=== PATIENT | female | born 1950 | race Caucasian/White ===

== ENCOUNTER → 2023-12-03 12:21 | Outpatient (REF) | payer OTHER, SELFPAY | LOC: HWWDC 12:21 | PROVIDERS: ATTENDING PHYSICIAN Nurse Practitioner Family; FAMILY PHYSICIAN Internal Medicine | DX: Z12.31 Encounter for screening mammogram for malignant neoplasm of breast (principal) | CPT/HCPCS: 77063; 77067 ==

== ENCOUNTER → 2024-04-07 11:22 | Outpatient (REF) | payer OTHER, SELFPAY | LOC: DHCBC/DCA 11:22 | PROVIDERS: ATTENDING PHYSICIAN Internal Medicine Cardiovascular Disease; FAMILY PHYSICIAN Internal Medicine | DX: R00.2 Palpitations (principal); I10 Essential (primary) hypertension; Z82.49 Family history of ischemic heart disease and other diseases of the circulatory system; R06.02 Shortness of breath | CPT/HCPCS: 78452; 93017; A9500 ==

== ENCOUNTER → 2024-04-22 06:27 | Day surgery (SDC) | payer OTHER, SELFPAY | LOC: GI 06:27 | PROVIDERS: ATTENDING PHYSICIAN Internal Medicine Gastroenterology | DX: K21.00 Gastro-esophageal reflux disease with esophagitis, without bleeding (principal); K44.9 Diaphragmatic hernia without obstruction or gangrene; K29.50 Unspecified chronic gastritis without bleeding | CPT/HCPCS: 43239; 88305; 88342 ==

== ENCOUNTER → 2024-04-30 11:51 | Outpatient (REF) | payer OTHER, SELFPAY | LOC: RAD 11:51 | PROVIDERS: ATTENDING PHYSICIAN Internal Medicine Cardiovascular Disease; FAMILY PHYSICIAN Internal Medicine | DX: I10 Essential (primary) hypertension (principal); R07.9 Chest pain, unspecified | CPT/HCPCS: 75574; Q9967 ==

== ENCOUNTER 2024-07-22 06:25 | Day surgery (SDC) | payer OTHER, SELFPAY ==
[2024-07-02 13:03] VITALS: BMI 27.0
[2024-07-02 14:22] LABS: Hematocrit 36.2 % (37.0-47.0); Hemoglobin 12.3 g/dL (12.0-16.0); Mean Corpuscular Hgb 29.8 pg (27.0-31.0); Mean Corpuscular Volume 87.7 fL (81.0-99.0); Mean Platelet Volume 9.6 fL (7.4-10.4); Platelet Count 433 10^3/uL (130-400); Red Blood Cell Count 4.13 10^6/uL (4.20-5.40); Red Cell Dist. Width 13.1 % (11.5-14.5); White Blood Cell Count 7.2 10^3/uL (4.8-10.8)
[2024-07-22] VITALS (9 sets, daily range): BP systolic 123–157; BP diastolic 67–79; BMI 27.0
[2024-07-22] MEDS: MOBIC 15 MG PO (11:51)
[2024-07-22] MEDS: TYLENOL 1000 MG PO (11:51)
== END 2024-07-22 19:32 | disposition home or self-care (01) ==
LOC: SDS 06:25
PROVIDERS: ATTENDING PHYSICIAN Specialist; FAMILY PHYSICIAN Internal Medicine; OTHER PHYSICIAN Internal Medicine Cardiovascular Disease
PROC: 0SBD4ZZ Excision of Left Knee Joint, Percutaneous Endoscopic Approach (ICD-10-PCS; 2024-07-22)
DX: S83.242A Other tear of medial meniscus, current injury, left knee, initial encounter (principal); X58.XXXA Exposure to other specified factors, initial encounter; M94.262 Chondromalacia, left knee
CPT/HCPCS: 29881; 36415; 85027; 93005

== ENCOUNTER → 2024-08-12 16:07 | Outpatient (REF) | payer OTHER, SELFPAY ==
[2024-04-11 13:23] LABS: Hematocrit 36.3 % (37.0-47.0); Hemoglobin 12.8 g/dL (12.0-16.0); Mean Corp Hgb Conc. 35.3 g/dL (33.0-37.0); Mean Corpuscular Hgb 30.6 pg (27.0-31.0); Mean Corpuscular Volume 86.8 fL (81.0-99.0); Mean Platelet Volume 9.6 fL (7.4-10.4); Platelet Count 400 10^3/uL (130-400); Red Blood Cell Count 4.18 10^6/uL (4.20-5.40); Red Cell Dist. Width 12.5 % (11.5-14.5)
[2024-04-11 13:38] VITALS: BMI 26.1
== END ==
LOC: REG 16:07
PROVIDERS: ATTENDING PHYSICIAN Specialist; FAMILY PHYSICIAN Internal Medicine; OTHER PHYSICIAN Internal Medicine Cardiovascular Disease
DX: S83.242D Other tear of medial meniscus, current injury, left knee, subsequent encounter (principal)
CPT/HCPCS: 36415; 85027

== ENCOUNTER 2024-09-07 21:20 | Inpatient (IN) | payer OTHER, SELFPAY ==
[2024-09-07] VITALS (13 sets, daily range): BP systolic 106–179; BP diastolic 66–151; BMI 26.4
--- NOTE | 2024-09-07 19:05 | ED.GENMED ---
History of Present Illness
General
Chief Complaint: Cardiac Symptoms
Source: patient
Exam Limitations: none
Time Seen by Provider: 09/07/24 18:51
History of Present Illness
History of Present Illness:
74-year-old female with history of hypothyroidism hyperlipidemia presents with rapid heart rate chest pressure. Unclear onset. She has been feeling off for period of time. She has follow-up with cardiology. She was due for heart catheterization
in the morning. No prior diagnosis of arrhythmias. No leg swelling or calf pain. No recent travel or surgery.
Phy Exam
Physical Exam
Physical Exam:
General: Well-appearing female no acute respiratory distress
HEENT: Normocephalic atraumatic
Heart: Tachycardic and irregular
Lungs: Clear no wheeze
Extremities: No cyanosis
Skin: Warm no rash
Course
Orders/Labs/Results
Orders:
Orders
09/07/24 18:36
EKG [Electrocardiogram (*1)] Stat
Reason for Study: Chest Pain
EKG- Treatment ONCE
09/07/24 19:00
Diltiazem 125 mg/125 ml Nss [Cardizem] 125 mg in 125 ml IV PER PROTOCOL
Initial dose in mg/hr, then titrate:: 5
Titrate to keep:: Heart rate 80-100 bpm
Titrate by mg/hr:: 5 mg/hr
Frequency of titrations (minutes):: 15
Maximum dose in mg/hr:: 15
Diltiazem HCl [Cardizem] 10 mg IV NOW STA
09/07/24 19:08
Complete Blood Count/With Diff Urgent
Comprehensive Metabolic Panel Urgent
TSH Reflex To Free T4 Urgent
Troponin I Urgent
09/07/24 19:56
0.9% Sodium Chloride 1000 ml [Nss] 1,000 ml IV BOLUS
Diltiazem HCl [Cardizem] 10 mg IV NOW STA
09/07/24 20:05
Heparin 4,000 units IV NOW STA
Pharmacy Request to Place See Dose Instructions PO NOW STA
Discontinue all Active Warfarin orders?: Yes
09/07/24 20:06
PTT Urgent
Comment: Obtain baseline before beginning heparin infusion if not already collected
Nursing to Place Non Medication Order As Directed
Physician Order: PTT 6 hours after initial start of Heparin infusion
09/07/24 20:15
Heparin 61113 Units/250 ml 25,000 units in 250 ml IV PER PROTOCOL
Weight to be used for heparin protocol in kilograms (kg):: 72
Protocol:: Cardiac Tx/Acute Coronary
PTT Goal Range to be used:: PTT 73 to 111 seconds
Order type:: Initial
INITIAL Infusion Dose (UNITS/KG/hr) & then follow protocol:: 12 units/kg/hr
Infusion Dose in UNITS/hr & then follow protocol (UNITS/hr):: 850
INFUSION RATE in mL/hr & then follow protocol (mL/hr):: 8.5
PTT less than or equal to 64 seconds:: Increase rate by 200 units/hr (+ 2 mL/hr)
PTT 64.1 to 72.9 seconds:: Increase rate by 100 units/hr (+ 1 mL/hr)
PTT 73 to 111 seconds:: Target Range. No change in rate.
PTT 111.1 to 130.9 seconds:: Decrease rate by 100 units/hr (- 1 mL/hr)
PTT 131 to 199.9 seconds:: HOLD for 1 hr. Then decrease rate by 200 units/hr (- 2 mL/hr)
PTT greater than or equal to 200 seconds:: HOLD for 2 hrs & Notify Provider. Then decrease by 200 units/hr (-
2 mL/hr)
Lab follow-up:: Each change, PTT q6h until 2 consecutive are therapeutic. Then PTT
daily.
09/07/24 21:[address] See Dose Instructions IV DIRECTED
Abnormal Lab Results
09/07/24
19:08
Plt Count 418 H 10^3/uL
(130-400)
Absolute Neuts (auto) 8.1 H 10^3/uL
(1.4-6.5)
Absolute Monos (auto) 1.0 H 10^3/uL
(0.1-0.6)
Neutrophils % 77.6 H %
(42.2-75.2)
Lymphocytes % 11.8 L %
(20.5-51.1)
Monocytes % 9.6 H %
(1.7-9.3)
Carbon Dioxide 20 L mmol/L
(22-30)
Glucose 135 H mg/dl
(70-99)
09/07/24 19:08
09/07/24 19:08
Vital Signs
Initial and Last Documented VS:
Initial Vital Signs
Temp Pulse Resp BP Pulse Ox
98 F 168 20 131/85 95
09/07/24 18:44 09/07/24 18:44 09/07/24 18:44 09/07/24 18:44 09/07/24 18:44
Last Documented Vital Signs
Temp Pulse Resp BP Pulse Ox
98 F 144 20 106/76 97
09/07/24 18:44 09/07/24 20:04 09/07/24 19:45 09/07/24 20:04 09/07/24 19:45
MDM/Problems Addressed
Differential Diagnosis Includes:
Patient with palpitations chest discomfort shortness of breath. Consider arrhythmia versus ACS versus electrolyte abnormality will check thyroid as well.
EKG shows rapid A-fib with a heart rate in the 170s. Labs pending will attempt rate control with Cardizem. Exact onset of A-fib unknown. Not a clear cardioversion candidate.
*Critical Care Note
Total Time (30-74mins, 75-104mins- exclusive of procedures): Not Applicable
Update Note
Update Note:
Patient persisted to be in rapid A-fib. She was given 2 boluses of 10 mg of Cardizem and is currently on 15 mg on the drip. Patient blood pressure is stable. She feel better heart rate still in the 120s to 130s. Discussed with cardiology who
recommended initiation of heparin drip. Also admitted to hospitalist for further treatment.
ED Attending Note
-
Portions of this chart may have been created with voice recognition software.� Occasional wrong word or��sound alike� substitutions may have occurred due to the inherent limitations of voice recognition software.
Discharge Plan
Departure
Patient Disposition: Admit
Date of Disposition: 09/07/24
Time of Disposition: 20:17
Admit to: Telemetry
Presentation/result/management discussed w/ accepting MD/DO: Hospitalist
Discharge Problem:
Atrial fibrillation, rapid
Prescriptions:
No Action
multivitamin Tablet
1 tab PO DAILY
ascorbic acid (vitamin C) [Vitamin C] 1,000 mg Tablet
1 g PO DAILY
valsartan 80 mg Tablet
80 mg PO HS
temazepam 15 mg Capsule
15 mg PO HS PRN (Reason: insomnia)
rizatriptan 10 mg Tablet,Disintegrating
10 mg PO PRN PRN (Reason: migraines)
levothyroxine 125 mcg Tablet
125 mcg PO DAILY
zinc 50 mg Tablet
50 mg PO DAILY
magnesium 250 mg Tablet
250 mg PO DAILY
cholecalciferol (vitamin D3) [Vitamin D3] 25 mcg (1,000 unit) Tablet
25 mcg PO DAILY
Prolia 60 mg/mL Syringe
60 mg SC [id number]
atorvastatin 20 mg Tablet
20 mg PO HS
Neuriva Original 100-100 mg Capsule
1 cap PO DAILY
aspirin 81 mg Capsule
81 mg PO DAILY
Voquezna 20 mg Tablet
20 mg PO DAILY
biotin
1 tab PO DAILY
turmeric
1 tab PO DAILY
Interventions
Interventions:
*Risk Screen - Suicide Last Done: 09/07/24 18:35
*General Assessment Last Done: 09/07/24 19:17
*Neglect/Abuse Screening Last Done: 09/07/24 18:35
ED- Fall Risk Assessment Last Done: 09/07/24 18:35
*ED COVID-19 Vaccine History Last Done: 09/07/24 19:17
ED- Pulmonary Assessment Last Done: 09/07/24 19:17
ED- Cardiac Assessment Last Done: 09/07/24 19:17
Discharge Date and Time
Print Language: CITIZEN [place]
[2024-09-07] MEDS: CARDIZEM 10 MG IV ×2 (19:08→20:04)
[2024-09-07] MEDS: CARDIZEM 125 IV (19:10)
[2024-09-07 19:33] LABS: % Basophils 0.2 % (0-2); % Eosinophils 0.4 % (0-6); % Immature Granulocytes 0.4 % (0-0.5); % Lymphocytes 11.8 % (20.5-51.1); % Monocytes 9.6 % (1.7-9.3); % Neutrophils 77.6 % (42.2-75.2); Absolute Lymphocytes 1.2 10^3/uL (1.2-3.4); Absolute Neutrophils 8.1 10^3/uL (1.4-6.5); Hematocrit 38.7 % (37.0-47.0); Hemoglobin 12.9 g/dL (12.0-16.0); Mean Corp Hgb Conc. 33.3 g/dL (33.0-37.0); Mean Corpuscular Hgb 29.5 pg (27.0-31.0); Mean Corpuscular Volume 88.6 fL (81.0-99.0); Mean Platelet Volume 9.6 fL (7.4-10.4); Nucleated Red Blood Cells % 0 %; Platelet Count 418 10^3/uL (130-400); Red Blood Cell Count 4.37 10^6/uL (4.20-5.40); Red Cell Dist. Width 12.7 % (11.5-14.5); White Blood Cell Count 10.4 10^3/uL (4.8-10.8)
[2024-09-07 19:51] LABS: ALT (SGPT) 26 U/L (0-35); AST (SGOT) 22 U/L (14-36); Albumin 4.5 g/dl (3.5-5.0); Alkaline Phosphatase 64 U/L (38-126); Blood Urea Nitrogen 13 mg/dl (7-17); Calcium 9.6 mg/dl (8.4-10.2); Carbon Dioxide 20 mmol/L (22-30); Chloride 106 mmol/L (98-107); Estimated Creatinine Clearance 62 ml/min; Glucose 135 mg/dl (70-99); Potassium 3.9 mmol/L (3.5-5.1); Sodium 138 mmol/L (135-145); Total Bilirubin 0.7 mg/dl (0.2-1.3); Total Protein 7.1 g/dl (6.3-8.2); eGFR > 60.00
[2024-09-07 19:53] LABS: Troponin I 0.028 ng/ml
[2024-09-07] MEDS: NSS 1000 IV (20:03)
[2024-09-07 20:20] LABS: TSH Reflex To Free T4 0.07 uIU/ml (0.47-4.68)
[2024-09-07 20:39] LABS: APTT 30.2 Sec (23.4-35.0)
[2024-09-07 20:50] LABS: Free T4 1.57 ng/dl (0.78-2.19)
--- NOTE | 2024-09-07 21:08 | HPS.HSE ---
Family Physician
-
Family Physician: Stella Oglesby
Chief Complaint
-
Palpitations / Chest Pain
History of Present Illness
Patient is a 74y F with PMH significant for hypothyroidism, migraine headaches and GERD who presents to ED complaining of palpitations and chest discomfort. Patient states that she developed intermittent discomfort in the L jaw about 2 weeks
ago. She had been seen by her Automation Consultant on Sunday and was started on new metoprolol and Imdur. She was scheduled for catheterization (tomorrow AM). Patient notes that the Imdur caused a severe headache and she slept poorly last PM due to
discomfort. Upon waking this AM, patient noted pounding / racing sensation in the chest with chest tightness / heaviness. No radiation of the pain today to the jaw, arm, back, etc.
Patient reports associated nausea / retching, SOB, lightheadedness and diaphoresis. She checked her pulse at home with a CardioNet monitor and this stated that she was in A-Fib with heart rate of 189.
Patient presented to the ED for further evaluation where EKG / tele confirms A-Fib with RVR.
At the time of my examination, patient is resting comfortably in the ED.
She denies any recent symptoms of illness including sore throat, cough, fever / chills, etc.
Patient does not have a prior / formal diagnosis of A-Fib - though she has experienced intermittent palpitations x years.
Her T4 dose was recently decreased from 125mcg daily to 125mcg six days per week due to depressed TSH.
No other recent med changes / additions (besides previously mentioned metoprolol / Imdur).
Medical History
Past Medical History
Past Medical History: Reports Other
Additional Past Medical History:
Hypothyroidism
Osteoporosis
GERD
Migraine Headaches
Insomnia
Past Surgical History: Reports Other
Additional Past Surgical History:
Bilateral Knee Arthroscopies
Cataracts
Social History
Tobacco: Non-smoker
Alcohol: Occasional
Drug: None
Personal:
Living: With Family
Family History
Family History: Other (Family history of premature CAD.)
Allergies / Home Medications
Allergies reflects when Allergies were last updated in [facility].
Home Medications with original date entered in [facility]
Allergy/Medication List:
Allergies
Allergy/AdvReac Type Severity Reaction Status Date / Time
bee venom protein (honey bee) Allergy major Verified 09/07/24 18:37
swelling
Sulfa (Sulfonamide Allergy GASTROINTESTINAL Verified 09/07/24 18:37
Antibiotics) PROBLEMS
Home Medications
ascorbic acid (vitamin C) 1,000 mg tablet (Vitamin C) 1 g PO DAILY 04/28/24
cholecalciferol (vitamin D3) 25 mcg (1,000 unit) tablet (Vitamin D3) 25 mcg PO DAILY 04/28/24
denosumab 60 mg/mL subcutaneous syringe (Prolia) 60 mg SC [id number] 04/28/24
levothyroxine 125 mcg tablet 125 mcg PO DAILY 04/28/24
magnesium 250 mg tablet 250 mg PO DAILY 04/28/24
multivitamin 1 tab PO DAILY 04/28/24
rizatriptan 10 mg disintegrating tablet 10 mg PO PRN PRN migraines 04/28/24
temazepam 15 mg capsule 15 mg PO HS PRN insomnia 04/28/24
valsartan 80 mg tablet 80 mg PO HS 04/28/24
zinc 50 mg tablet 50 mg PO DAILY 04/28/24
aspirin 81 mg capsule 81 mg PO DAILY 07/17/24
atorvastatin 20 mg tablet 40 mg PO HS 07/17/24
biotin 1 tab PO DAILY 07/17/24
coffee extract 100 mg-phosphatidyl serine 100 mg capsule (Neuriva Original) 1 cap PO DAILY 07/17/24
turmeric 1 tab PO DAILY 07/17/24
vonoprazan 20 mg tablet (Voquezna) 20 mg PO DAILY 07/17/24
Review of Systems
-
History Source: Patient
A 12 point ROS was completed and negative except as noted: Yes
Constitutional: Reports Fatigue; Denies Fever or Chills
EENT: Denies Sore Throat
Respiratory: Reports Trouble Breathing; Denies Cough
Cardiac: Reports Chest Pain, Diaphoresis and Palpitations; Denies Syncope
Abdomen/GI: Reports Nausea; Denies Abdominal Pain, Vomiting or Diarrhea
: Denies Dysuria or Frequency
Musculoskeletal: Denies Joint Pain or Edema
Neurological: Reports Dizzy and Headache; Denies Weakness or Numbness
Psych: Denies Depression or Anxiety
Physical Exam
Vital Signs
Vital Signs
Temp Pulse Resp BP Pulse Ox
98 F 136 17 112/81 99
09/07/24 18:44 09/07/24 20:30 09/07/24 20:30 09/07/24 20:30 09/07/24 20:30
Physical Exam
General: Other (74y F in no acute distress. )
HEENT: Moist mucous membranes and PERRLA
Respiratory: Clear; No Wheezes, Rales or Rhonchi
Cardiac: S1/S2, Irregular Rhythm and Tachycardia; No Murmur
GI: Soft, Non Tender, Non Distended and Normal Bowel Sounds
Musculoskeletal: No Clubbing, No Cyanosis and No Edema
Neuro: AO x 3
Laboratory Results
-
09/07/24 19:08
09/07/24 19:08
Laboratory Results
APTT 30.2 Sec (23.4-35.0) 09/07/24 20:10
Total Bilirubin 0.7 mg/dl (0.2-1.3) 09/07/24 19:08
AST 22 U/L (14-36) 09/07/24 19:08
ALT 26 U/L (0-35) 09/07/24 19:08
Alkaline Phosphatase 64 U/L (38-126) 09/07/24 19:08
Troponin I 0.028 ng/ml 09/07/24 19:08
Impression/Plan
-
A/P: Patient is a 74y F with PMH significant for hypothyroidism, migraines and GERD who presents to ED complaining of palpitations and chest pain.
Atrial Fibrillation with Rapid Ventricular Response - Newly Recognized
- Admit to IVU for further evaluation and treatment.
- Continue IV diltiazem and titrate as needed for adequate rate control.
- Continue current metoprolol dosing and adjust as needed.
- IV heparin started in the ED - transition to OAC prior to discharge.
- Cardiology evaluation for additional recommendations.
Chest Pain
- Several weeks of intermittent L jaw pain. Now more liz chest pressure with rapid A-Fib.
- Trop non-negative. Follow to peak.
- IV heparin started as noted above.
- Patient had been scheduled for cardiac cath in AM 09/08.
- Cardiology evaluation / ischemic evaluation as noted above.
- Continue ASA, statin, metoprolol.
- Follow for any new / worsening symptoms.
Hypothyroidism
- Over-replaced based on TSH = 0.07 on today's labs.
- Recently decreased from 7 to 6 days per week dosing.
- Will decrease to 112mcg dose (daily).
- Follow-up with Endocrine as an outpatient.
- Repeat labs in 4-6 weeks.
GERD
- Stable. Continue Voquenza or PPI replacement during hospital stay.
Migraine Headaches
- Increased headaches since initiation of Imdur on Sunday.
- Hold further Imdur for now.
- Avoid any triptans acutely pending completion of CV work-up.
Insomnia
- Stable. Continue temazepam PRN.
DVT Prophylaxis: On Heparin at present.
Code Status: Full
[2024-09-07] MEDS: HEPARIN 4000 UNITS IV (21:09)
[2024-09-07] MEDS: HEPARIN 25000 UNITS/250 ML IV (21:10)
[2024-09-07] MEDS: DIOVAN 80 MG PO (23:05)
[2024-09-07] MEDS: LIPITOR 40 MG PO (23:05)
[2024-09-07 23:33] LABS: Troponin I 0.051 ng/ml
--- NOTE | 2024-09-07 23:39 | PTCARENOTE ---
Received patient from ED @ 1815. Patient awake, alert, and oriented. BP 109/72, HR 110s-130s A-Fib, 99% on room air. Patient states 'feeling much better.' Cardizem drip in left AC running at 15 mg/hr and heparin drip running at 859 units/hr in left
forearm. Discussed plan of care for the evening. Patient verbalizes understanding. Call bustillos within reach.
[2024-09-08] VITALS (18 sets, daily range): BP systolic 79–116; BP diastolic 50–79; BMI 26.4; BMI 25.4
[2024-09-08] MEDS: CARDIZEM 125 IV (04:13)
[2024-09-08 04:31] LABS: APTT 62.1 Sec (23.4-35.0)
[2024-09-08 04:33] LABS: Blood Urea Nitrogen 11 mg/dl (7-17); Calcium 8.9 mg/dl (8.4-10.2); Carbon Dioxide 21 mmol/L (22-30); Chloride 111 mmol/L (98-107); Estimated Creatinine Clearance 73 ml/min; Glucose 118 mg/dl (70-99); HDL Cholesterol 76 mg/dl; LDL Cholesterol, Calculated 61 mg/dl; Potassium 3.8 mmol/L (3.5-5.1); Sodium 141 mmol/L (135-145); Total Cholesterol 153 mg/dl (50-199); Triglyceride 83 mg/dl (10-149); Very Low Density Lipoprotein 16 mg/dl (0-30); eGFR > 60.00
[2024-09-08 04:48] LABS: Troponin I 0.045 ng/ml
--- NOTE | 2024-09-08 07:48 | W.PN.HOSP.TC ---
Today's Communication/Plan
-
see plan
Assessment / Plan
Assessment / Plan
Ms. Estela Gallego is a 74 yo woman with hx hypothyroidism, migraine, GERD with on-going outpatient work-up left jaw pain (recent start Imdur and Metoprolol, plan for cardiac cath morning of 09/08) presents to the ER with headache post Imdur and
palpitations early this morning. She checked her pulse at home with a CardioNet monitor and this stated that she was in A-Fib with heart rate of 189.
Atrial Fibrillation with Rapid Ventricular Response - Newly Recognized
- admitted to IVU
- IV diltiazem gtt - HR 90's-low 100's this morning
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
- IV Heparin gtt pre cath (transition to DOAC post procedure)
- Cardiology consult
Chest Pain
- Several weeks of intermittent L jaw pain. Now more liz chest pressure with rapid A-Fib.
- Trop peaked at 0.051
- IV heparin started as noted above.
- Patient had been scheduled for cardiac cath in AM 09/08.
- Continue ASA, statin, metoprolol.
- hold HVAC COMMERCIAL SALESPERSON Imdur - doesn't tolerate
Hypothyroidism
- Over-replaced based on TSH = 0.07 on today's labs.
- Recently decreased from 7 to 6 days per week dosing.
- Will decrease to 112mcg dose (daily).
- Follow-up with Endocrine as an outpatient.
- Repeat labs in 4-6 weeks.
GERD
- Stable. will order Protonix while admitted
Migraine Headaches
- Increased headaches since initiation of Imdur on Sunday.
- Hold further Imdur for now.
- Avoid any triptans acutely pending completion of CV work-up.
Insomnia
- Stable. Continue temazepam PRN.
DVT Prophylaxis: On Heparin at present.
Code Status: Full
51 minutes spent on patient care
Anticipated Discharge: 24 - 48 hours
Subjective/Interval History
-
Date of Service: September 08, 2024
feeling better this morning
HR 90's in afib - denies palpitations or chest discomfort - states discomfort was related to the palpitations
no shortness of breath or dizziness
Objective Data
-
Labs:
Laboratory Results
09/07/24 09/07/24 09/08/24
19:08 20:10 04:09
APTT 30.2 62.1 H
Sodium 138 141
Potassium 3.9 3.8
Chloride 106 111 H
Carbon Dioxide 20 L 21 L
BUN 13 11
Creatinine 0.7 0.6
Glucose 135 H 118 H
Calcium 9.6 8.9
Total Bilirubin 0.7
AST 22
ALT 26
Alkaline Phosphatase 64
09/08/24
11:25
APTT Pending
Sodium
Potassium
Chloride
Carbon Dioxide
BUN
Creatinine
Glucose
Calcium
Total Bilirubin
AST
ALT
Alkaline Phosphatase
Vital Signs:
Vital Signs
Temp Pulse Resp BP Pulse Ox
99.1 F 102 20 94/61 95
09/08/24 07:14 09/08/24 05:00 09/08/24 07:14 09/08/24 03:53 09/08/24 07:14
Review of Systems
-
History Source: Patient
All other systems: Reviewed and negative
Physical Exam
-
General: No Apparent Distress
HEENT: PERRLA
Respiratory: Clear to Auscultation; Negative Wheezes
Cardiac: Irregular Rhythm
GI: Soft and Nontender
Musculoskeletal: No Edema
Skin: Warm and Dry; Negative Rash
Neuro: AO x 3
Psych: Calm
Data Reviewed
-
Diagnostic Radiology: Report Reviewed by me
Labs: Labs Reviewed by me
--- NOTE | 2024-09-08 08:18 | CON.CAR ---
Addendum entered and electronically signed by Estela Rose MD 09/08/24 10:12:
I saw and examined the patient.
The Program Coordinator's note was reviewed and I agree with the note.
Comment: She presents with new onset rapid atrial fibrillation. She was scheduled for elective cardiac catheterization today given continued left-sided chest discomfort, some shortness of breath with typical and atypical features and new onset jaw
discomfort which was left-sided. Currently stable but mildly elevated troponins. Heart rate stable with atrial fibrillation. EKG not acute other than new onset atrial fibrillation.
She did not tolerate Imdur as an outpatient. Blood pressure is on the low side.
Plan at this time:
-For chest/jaw discomfort, to exclude coronary disease in the setting of at least moderate coronary calcification/plaque by coronary CTA and mildly elevated troponin proceed with cardiac catheterization.
-Continue aspirin, statin and beta-shannan. Interestingly as an outpatient LDL cholesterol was elevated and statin just increased a few days ago and LDL is 61. Continue to follow.
-For new onset atrial fibrillation for now continue rate control and IV heparin. Eventually switch to Eliquis. She is [id number] score of 4.
-As an outpatient she now remembers that she was having occasional palpitations likely has paroxysmal atrial fibrillation, she is likely paroxysmal. After catheterization findings consider discussion with electrophysiology.
-Continue IV diltiazem for now. Continue oral beta-shannan.
-Underlying thyroid disease followed by endocrinology.
-Thrombocytosis last 2 blood panels although mild follow-up as outpatient.
Original Note:
Consultation
Consultation Request
Date/Time Consultation Requested: 09/07/2024, 2105
Date/Time Consultation Performed: 09/08/2024, 0800
Requesting Provider: Dr Shiva Smith
Performing Provider: ISABEL Manzanares for Dr Rose
Reason for Consultation: afib, chest pain
Medical History
-
Chief Complaint: elevated HR
History of Present Illness:
74-year-old female with history of hypothyroidism, migraine, GERD, coronary calcification on coronary CTA, jaw pain and chest pain undergoing outpatient ischemic workup with plan for outpatient cardiac catheterization today, 09/08/2024. Recently
seen in cardiology office by Dr. Estela Rose and started on beta-shannan and isosorbide at visit on 09/05/2024, in addition to aspirin and intensified statin treatment. Yesterday, 09/07/2024, she reported feeling headache (started after
taking Isosorbide) and fatigued and stayed in bed most of the day. She got up out of bed and developed palpitations and lightheadedness, noted home HR was 180s. She presented to the ED and was found to be in A-fib with rapid ventricular response,
heart rate 189 bpm. Started on diltiazem drip and heparin. Heart rates improved to 90s to low 100s. Complain of more chest pressure as well as lightheadedness in setting of rapid A-fib. Troponin peak 0.051. N.p.o. for cath today. Of note TSH
0.07, free T4 1.57 (pt w/ known h/o hypothyroidism), platelets mildly elevated at 418.
Past medical history:
Hypertension
Dyslipidemia
Coronary calcification on coronary CTA�moderate LAD calcification and plaque
Hypothyroidism
Carpal tunnel
Migraines
GERD
Bilateral meniscus repair
Family history CAD
OS pucker on retina
Past Medical History
Past Medical History: Other (As above)
Past Surgical History: Other (Right knee scope 08/2019, left knee arthroscope 06/2024)
Social History
Tobacco: Non-Smoker
Alcohol: Occasional
Family History
Family History: Other (Sister with anomalous coronary artery and CAD status post 2 stents, parents both with heart disease, father with heart failure, [place], bypass surgery, stents, pacemaker. Mother with heart failure. Sister with
heart disease/[place]/stent)
Allergies / Home Medications
Allergy/AdvReac Type Severity Reaction Status Date / Time
bee venom protein (honey bee) Allergy major Verified 09/07/24 18:37
swelling
Sulfa (Sulfonamide Allergy GASTROINTESTINAL Verified 09/07/24 18:37
Antibiotics) PROBLEMS
�Medication �Instructions �Recorded �Confirmed �Type
ascorbic acid (vitamin C) 1,000 mg 1 g PO DAILY 04/28/24 09/07/24 History
tablet (Vitamin C)
cholecalciferol (vitamin D3) 25 25 mcg PO DAILY 04/28/24 09/07/24 History
mcg (1,000 unit) tablet (Vitamin
D3)
denosumab 60 mg/mL subcutaneous 60 mg SC [id number] 04/28/24 09/07/24 History
syringe (Prolia)
levothyroxine 125 mcg tablet 125 mcg PO DAILY 04/28/24 09/07/24 History
magnesium 250 mg tablet 250 mg PO DAILY 04/28/24 09/07/24 History
multivitamin 1 tab PO DAILY 04/28/24 09/07/24 History
rizatriptan 10 mg disintegrating 10 mg PO PRN PRN migraines 04/28/24 09/07/24 History
tablet
temazepam 15 mg capsule 15 mg PO HS PRN insomnia 04/28/24 09/07/24 History
valsartan 80 mg tablet 80 mg PO HS 04/28/24 09/07/24 History
zinc 50 mg tablet 50 mg PO DAILY 04/28/24 09/07/24 History
aspirin 81 mg capsule 81 mg PO DAILY 07/17/24 09/07/24 History
atorvastatin 20 mg tablet 40 mg PO HS 07/17/24 09/07/24 History
biotin 1 tab PO DAILY 07/17/24 09/07/24 History
coffee extract 100 mg-phosphatidyl 1 cap PO DAILY 07/17/24 09/07/24 History
serine 100 mg capsule (Neuriva
Original)
turmeric 1 tab PO DAILY 07/17/24 09/07/24 History
vonoprazan 20 mg tablet (Voquezna) 20 mg PO DAILY 07/17/24 09/07/24 History
Review of Systems
-
History Source: Patient
All other systems: Negative unless noted
Physical Exam
Vital Signs
Temp Pulse Resp BP Pulse Ox
99.1 F 102 20 94/61 95
09/08/24 07:14 09/08/24 05:00 09/08/24 07:14 09/08/24 03:53 09/08/24 07:14
Lab Results
09/07/24 19:08
09/08/24 04:09
Troponin I 0.045 ng/ml H* 09/08/24 04:09
GEN: No distress, awake, Ox3
HEENT: supple, anicteric, mmm
LUNGS: CTA, no wheezes/rales
CV: Irregular irregular reg, S1/S2, no murmur
ABD: soft, BS+, NT/ND
EXT: No edema
NEURO: Gross non-focal
SKIN: No rash
Impression / Plan
-
PCP: Stella Oglesby
Primary locker room supervisor: Estela Rose MD
Impression
A-fib with rapid ventricular response�new diagnosis
Chest pain/jaw pain
Elevated troponin
Coronary calcification on coronary CTA
Hypothyroidism
GERD
Migraines
Previous cardiovascular testing:
Stress echo 01/04/2022: Normal at 8.5 METS
Nuclear stress test 04/07/2024: Normal perfusion imaging EF 77%, 6 minutes on Ha protocol, [address]: 04/30/2024: LM: No significant obstructive disease. LAD: Moderate-sized mid calcified plaque, calcium score 105.7. Left circumflex: No significant obstructive CAD, RCA: Min calcified plaque proximally
EKG 09/08/2024: Atrial fibrillation, heart rate 95 bpm
EKG 09/07/2024: A-fib with rapid ventricular response [address] abnormality
Plan:
74-year-old female with hypothyroidism, migraines, GERD, coronary calcification on coronary CTA, new jaw pain and chest pain undergoing outpatient ischemic workup with plan for outpatient cardiac catheterization today, 09/08/2024. Recently seen in
cardiology office by Dr. Estela Rose and started on beta-shannan and isosorbide at visit on 09/05/2024, in addition to aspirin and intensified statin treatment. Yesterday, 09/07/2024, she reported feeling headache (started after taking
Isosorbide) and fatigued and stayed in bed most of the day. Around 5 pm, she got up out of bed and developed palpitations and lightheadedness, noted home HR was 180s. She presented to the ED and was found to be in A-fib with rapid ventricular
response, heart rate 189 bpm. Started on diltiazem drip and heparin. Heart rates improved to 90s to low 100s. Complain of more chest pressure as well as lightheadedness in setting of rapid A-fib. Troponin peak 0.051. N.p.o. for cath today. Of
note TSH 0.07, free T41.57, platelets mildly elevated at 418.
--Mildly elevated troponin, peak at 0.051, and concern for increasing anginal symptoms in outpatient setting, n.p.o. for cath today.
- Continue heparin drip in setting of chest pain, elevated troponin, and new A-fib
-Continue to trend troponins
-check echo
-Not tolerant of isosorbide, can stop
-Continue beta-shannan, aspirin, statin
-Other therapy dependent upon results of cath
-FLP 09/08/2024: LDL 61, HDL 76, TG 83, Tchol 153 on atorvastatin 40 mg daily - acceptable
A-fib- new diagnosis
- rate controlled on IV diltiazem
-Personally reviewed telemetry, A-fib heart rate 80s to 90s
-Eventual transition to oral anticoagulation with Eliquis after cath
-To consider cardioversion while inpatient if she does not self convert
-Eventual transition from IV Cardizem, uptitrate outpatient beta-shannan dose. Currently on Toprol 25 mg daily
-[id number] score 4(age, female, HTN)
Blood pressures lower on exam today, asymptomatic, hold Valsartan for BP <110/.
TSH 0.07, free T4 1.57, within normal limits. Known history of hypothyroidism. Follow-up with her project systems engineer, Dr. Carli Gonzalez
Platelets mildly elevated at 433, 418. Outpatient evaluation with hematology.
Data Reviewed
-
EKG: Tracing Personally Visualized and interpreted
Labs: Labs Reviewed by me
[2024-09-08 08:34] LABS: Glycohemoglobin (HgbA1c) 5.5 % (4.0-5.6)
[2024-09-08] MEDS: ASPIR LOW (ENTERIC COATED) 81 MG PO (08:53)
[2024-09-08] MEDS: SYNTHROID 112 MCG PO (08:53)
[2024-09-08] MEDS: PROTONIX 40 MG PO (08:53)
--- NOTE | 2024-09-08 11:15 | PTCARENOTE ---
Report given to Lizbet in physical laboratory assistant; Pt taken in her bed to physical laboratory assistant w/Petersonm drip still infusing per MD order. Heparin drip held as ordered.
[2024-09-08 11:42] LABS: APTT 65.1 Sec (23.4-35.0)
[2024-09-08 12:03] LABS: Troponin I 0.021 ng/ml
--- NOTE | 2024-09-08 12:45 | PTCARENOTE ---
Rec'd report from Lizbet in the maintenance shop laborer & rec'd pt back from photo lab manager AAOx3 w/no c/o CP or SOB. Pt's BP low at 89/70, HR in the 100's; Cardizem drip rate decreased to 5mg/mL/hr as ordered. Pt w/R radial band in place w/no signs or symptoms of
bleeding or hematoma. Pt w/spouse at bedside & call bustillos within reach. Plan of care ongoing.
--- NOTE | 2024-09-08 12:53 | ITS.CL.CATH ---
Broadcast Director Operations - Catheterization
Cardiac Catheterization
Procedure Report:
LEFT HEART CATHETERIZATION
Date of Procedure: September 08, 2024
Referring: Dr. Estela Rose
PROCEDURES:
1. Left heart catheterization with coronary and single-plane left ventriculography
INDICATION: Chest pain with borderline to mildly elevated troponin and new onset atrial fibrillation
ACCESS: Right radial artery, 6 Maltese sheath
HEMODYNAMICS : (mmHg)
AO (s/d) : 93/58
LV (s/d) : 91/9
LVEDP : 15
CORONARY FINDINGS
DOMINANCE: Right
LEFT MAIN: Normal
LEFT ANTERIOR DESCENDING: The LAD arises normally from the left main and runs in the anterior interventricular groove. The mid LAD has 30% stenosis near the origin of the first diagonal branch. The mid to distal LAD is widely patent and wraps
completely around the apex supplying a significant portion of the inferior
CIRCUMFLEX: The circumflex is a medium caliber nondominant vessel giving rise to a small-medium OM 1 that bifurcates distally. OM 2 is small
RIGHT CORONARY ARTERY: The right coronary artery is a dominant vessel that is widely patent over its course. The PDA is a rather small caliber that bifurcates proximally. The posterolateral branch is a large.
VENTRICULOGRAPHY: Left ventriculography was performed in an V[place]O projection. The digital single-plane left ventricular ejection fraction is estimated at 70% regional motion abnormalities are noted
RADIATION SUMMARY: Fluoro Time (min): 2.3, Dose (mGy): 148, DAP (Gy.cm2) : 11.8
Closure Device: TR band
CONCLUSIONS
1. Nonobstructive coronary disease
2. Preserved left ventricular systolic function
RECOMMENDATIONS
1. Resume IV/oral anticoagulation
2. EP will be involved to discuss antiarrhythmic therapy and possible cardioversion
Copy to: Dr. Estela Rose
--- NOTE | 2024-09-08 15:00 | PTCARENOTE ---
Pt converted to SR, w/HR in the 's at approx 1431 this afternoon. Cardiology aware.
--- NOTE | 2024-09-08 17:36 | W.PN.UPDATE ---
Update Note
Progress Note Update
Cardiac cath today showed nonobstructive coronary artery disease, mid LAD 30%, EF 70%.
Patient self converted to normal sinus rhythm
d/c'd Cardizem drip
Continue outpatient metoprolol succinate 25 mg daily
Eliquis started
Initiation of a 1C antiarrhythmic medication was discussed. Patient prefers not to start at this time. Plan outpatient 1 week Bardy monitor, outpatient sleep study, and follow-up with EP. Office messaged to arrange for these studies/visit.
Patient should be able to be discharged in AM.
--- NOTE | 2024-09-08 18:00 | CM ---
spoke to pt in room, she is prev indep, lives with her husb in a 3 story home with no steps toneter. she denies ay dc planning needs or dme's. plan is for dc to home when medically stable.
[2024-09-08] MEDS: TOPROL XL 25 MG PO (18:13)
[2024-09-08] MEDS: ELIQUIS 5 MG PO (18:14)
[2024-09-08 20:06] LABS: Hepatitis C Antibody Negative (Negative)
--- NOTE | 2024-09-08 21:52 | PTCARENOTE ---
Patient received at change of shift. Denies pain, nausea, vomiting, numbness, and/or tingling. Patient denies feeling lightheaded or dizzy. Patient presently normal sinus rhythm on the alarm security or surveillance monitor. Right radial puncture site with gauze and
tegaderm clean/dry/intact, soft to palpation, no ecchymosis present. Bilateral radial pulse +2 to palpation. Capillary refill right hand fingertips <3 seconds. Call bustillos within reach. Plan of care ongoing
[2024-09-08] MEDS: DIOVAN PO (22:11)
[2024-09-08] MEDS: LIPITOR 40 MG PO (22:11)
[2024-09-09 04:58] VITALS: BP 103/50
[2024-09-09 05:00] VITALS: BMI 25.5
[2024-09-09] MEDS: SYNTHROID 112 MCG PO (05:08)
[2024-09-09 05:34] LABS: Hematocrit 34.4 % (37.0-47.0); Hemoglobin 11.5 g/dL (12.0-16.0); Mean Corp Hgb Conc. 33.4 g/dL (33.0-37.0); Mean Corpuscular Hgb 30.3 pg (27.0-31.0); Mean Corpuscular Volume 90.8 fL (81.0-99.0); Mean Platelet Volume 9.5 fL (7.4-10.4); Platelet Count 348 10^3/uL (130-400); Red Blood Cell Count 3.79 10^6/uL (4.20-5.40); White Blood Cell Count 6.8 10^3/uL (4.8-10.8)
[2024-09-09 06:00] LABS: Blood Urea Nitrogen 14 mg/dl (7-17); Calcium 8.9 mg/dl (8.4-10.2); Carbon Dioxide 23 mmol/L (22-30); Chloride 110 mmol/L (98-107); Estimated Creatinine Clearance 62 ml/min; Glucose 111 mg/dl (70-99); Magnesium 2.2 mg/dl (1.6-2.3); Potassium 3.8 mmol/L (3.5-5.1); Sodium 140 mmol/L (135-145); eGFR > 60.00
--- NOTE | 2024-09-09 07:50 | W.PN.HOSP.TC ---
Today's Communication/Plan
-
expect DC today, follow up final cardiology recommendations
Assessment / Plan
Assessment / Plan
Ms. Estela Gallego is a 74 yo woman with hx hypothyroidism, migraine, GERD with on-going outpatient work-up left jaw pain (recent start Imdur and Metoprolol, plan for cardiac cath morning of 09/08) presents to the ER 09/07 with headache post Imdur
and palpitations earlier this morning. She checked her pulse at home with a [employer] monitor and this stated that she was in A-Fib with heart rate of 189. Patient was admitted, placed on IV Diltiazem gtt and is now s/p cardiac cath showing
non-obstructive CAD.
TTE 09/08/24
CONCLUSIONS
Normal left ventricular chamber size. Normal left ventricular systolic
function. Left ventricular ejection fraction is 60% by visual assessment.
Normal regional wall motion. Mild concentric left ventricular hypertrophy.
No significant valvular disease.
No prior study available for comparison.
Indications:
new Afib, chest pain
Cardiac Cath 09/08/24
CONCLUSIONS
1. Nonobstructive coronary disease
2. Preserved left ventricular systolic function
RECOMMENDATIONS
1. Resume IV/oral anticoagulation
2. EP will be involved to discuss antiarrhythmic therapy and possible cardioversion
Atrial Fibrillation with Rapid Ventricular Response - Newly Recognized
- admitted to IVU
- s/p IV diltiazem gtt, converted to sinus rhythm and Dilt gtt d/c'd
- new start Metoprolol XL 25mg PO QD
- Eliquis initiated
- Cardiology consult appreciated, follow up outpatient with EP
Chest Pain
- Several weeks of intermittent L jaw pain. Now more liz chest pressure with rapid A-Fib.
- Trop peaked at 0.051
- cardiac cath with non-obstructive CAD
- Continue ASA, statin, metoprolol.
- hold PHYS THER Imdur - doesn't tolerate
Hypothyroidism
- Over-replaced based on TSH = 0.07 on admission labs.
- Recently decreased from 7 to 6 days per week dosing.
- Will decrease to 112mcg dose (daily).
- Follow-up with Endocrine as an outpatient.
- Repeat labs in 4-6 weeks.
GERD
- Stable. will order Protonix while admitted
Migraine Headaches
- Increased headaches since initiation of Imdur on Sunday.
- Hold further Imdur for now.
- Avoid any triptans acutely pending completion of CV work-up.
Insomnia
- Stable. Continue temazepam PRN.
DVT Prophylaxis: On Heparin at present.
Code Status: Full
51 minutes spent on patient care
Anticipated Discharge: Today
Subjective/Interval History
-
Date of Service: September 09, 2024
feeling well
hoping to go home today
wrist without pain
Objective Data
-
Labs:
Laboratory Results
09/09/24
05:07
WBC 6.8
Hgb 11.5 L
Hct 34.4 L
Plt Count 348
Sodium 140
Potassium 3.8
Chloride 110 H
Carbon Dioxide 23
BUN 14
Creatinine 0.7
Glucose 111 H
Calcium 8.9
Vital Signs:
Vital Signs
Temp Pulse Resp BP Pulse Ox
98.5 F 66 14 103/50 96
09/09/24 04:57 09/09/24 06:00 09/09/24 04:57 09/09/24 04:58 09/09/24 04:57
I&O
09/08/24 09/09/24 09/10/24
06:59 06:59 06:59
Intake Total 520 / 520
Balance 520 / 520
Review of Systems
-
History Source: Patient
All other systems: Reviewed and negative
Physical Exam
-
General: No Apparent Distress
HEENT: PERRLA
Respiratory: Clear to Auscultation; Negative Wheezes
Cardiac: Regular Rhythm
GI: Soft and Nontender
Musculoskeletal: No Edema
Skin: Warm and Dry; Negative Rash
Neuro: AO x 3
Psych: Calm
Data Reviewed
-
Diagnostic Radiology: Report Reviewed by me
Labs: Labs Reviewed by me
--- NOTE | 2024-09-09 08:00 | PTCARENOTE ---
Resumed care of patient from previous RN. Walking rounds done. Resting in bed at time of assessment. No complaints. SR on monitor. Right radial puncture site c/d/i. radial pulses palpable. independent in care. hopeful d/c this afternoon. Call bustillos
within reach. will continue to monitor.
[2024-09-09 08:12] VITALS: BP 110/65
[2024-09-09] MEDS: ASPIR LOW (ENTERIC COATED) 81 MG PO (09:58)
[2024-09-09] MEDS: TOPROL XL 25 MG PO (09:58)
[2024-09-09] MEDS: PROTONIX 40 MG PO (09:58)
[2024-09-09] MEDS: ELIQUIS 5 MG PO (09:59)
--- NOTE | 2024-09-09 11:22 | W.PN.CARDCBS ---
Addendum entered and electronically signed by Lefty Haji DO 09/09/24 13:00:
I saw and examined the patient.
The Front Desk Receptionist's note was reviewed and I agree with the note.
Comment:
Plan:
Remains in sinus rhythm
Aspirin can be stopped. She continues with Eliquis and Toprol for paroxysmal atrial fibrillation.
Reviewed her cardiac catheterization in detail which did not show obstructive disease.
Outpatient youth nutritional monitor and home sleep study to be arranged.
Outpatient follow-up arranged.
Stable for discharge
Original Note:
Today's Communication / Plan
-
Remains in sinus rhythm
Stop aspirin
Discharged home on Toprol and Eliquis, both new medications
2-week outpatient youth nutritional monitor and home sleep test being arranged through cardiology office
Outpatient cardiology follow-up arranged
Impression / Plan
-
PCP: Stella Oglesby
Primary drill sharpener operator: Estela Rose MD
Impression
Presented
A-fib with rapid ventricular response�new diagnosis
Chest pain/jaw pain
Elevated troponin
Coronary calcification on coronary CTA
Hypothyroidism
GERD
Migraines
Echocardiogram 09/08/2024: EF 60%. Normal regional wall motion. Mild concentric LVH. No significant valvular disease
Stress echo 01/04/2022: Normal at 8.5 METS
Nuclear stress test 04/07/2024: Normal perfusion imaging EF 77%, 6 minutes on Ha protocol, 7 METS
Cardiac cath 09/08/2024: nonobstructive coronary artery disease, mid LAD 30%, EF 70%.
Coronary angiography CT: 04/30/2024: LM: No significant obstructive disease. LAD: Moderate-sized mid calcified plaque, calcium score 105.7. Left circumflex: No significant obstructive CAD, RCA: Min calcified plaque proximally
Plan:
A-fib- new diagnosis
-Spontaneously converted to sinus rhythm on IV diltiazem
-Continue Toprol (new this admission). Initiation of a 1C antiarrhythmic medication was discussed. Patient prefers not to start at this time.
-Plan for outpatient 2 week Bardy monitor which is being mailed to patients home
-Continue oral anticoagulation with Eliquis 5 mg BID (new this admission). Would stop ASA
-[id number] score 4(age, female, HTN)
-Will need outpatient sleep study; cardiology [facility]
Mildly elevated troponin, peak at 0.051, nonischemic myocardial injury most likely due to atrial fibrillation with rapid ventricular response
-Cardiac catheterization 09/08/2024 with nonobstructive CAD. Continue medical management
-Heparin discontinued in favor of Eliquis given new onset A-fib
-Echocardiogram as above demonstrates normal ejection fraction and no significant valvular disease.
-Not tolerant of isosorbide secondary to worsening migraine headaches
-Continue beta-shannan, statin
-FLP 09/08/2024: LDL 61, HDL 76, TG 83, Tchol 153 on atorvastatin 40 mg daily - acceptable
Blood pressures continue to run low, asymptomatic, Valsartan held 09/08/2024
TSH 0.07, free T4 1.57, within normal limits. Synthroid reduced at recommendation of primary service. Known history of hypothyroidism. Follow-up with her embedded firmware engineer, Dr. Carli Gonzalez
Platelets mildly elevated at 433, 418. Outpatient evaluation with hematology.
HPI:
74-year-old female with hypothyroidism, migraines, GERD, coronary calcification on coronary CTA, new jaw pain and chest pain undergoing outpatient ischemic workup with plan for outpatient cardiac catheterization today, 09/08/2024. Recently seen in
cardiology office by Dr. Estela Rose and started on beta-shannan and isosorbide at visit on 09/05/2024, in addition to aspirin and intensified statin treatment. Yesterday, 09/07/2024, she reported feeling headache (started after taking
Isosorbide) and fatigued and stayed in bed most of the day. Around 5 pm, she got up out of bed and developed palpitations and lightheadedness, noted home HR was 180s. She presented to the ED and was found to be in A-fib with rapid ventricular
response, heart rate 189 bpm. Started on diltiazem drip and heparin. Heart rates improved to 90s to low 100s. Complain of more chest pressure as well as lightheadedness in setting of rapid A-fib. Troponin peak 0.051. N.p.o. for cath today. Of
note TSH 0.07, free T41.57, platelets mildly elevated at 418.
Progress Note - Editor Continuity And Script
Subjective
Date of Service: September 09, 2024
Patient seen and examined. Patient overall feeling well. Patient is eager to go home.
Objective
Labs:
09/09/24 05:07
09/09/24 05:07
Labs
Hgb 11.5 g/dL (12.0-16.0) L 09/09/24 05:07
Hct 34.4 % (37.0-47.0) L 09/09/24 05:07
Plt Count 348 10^3/uL (130-400) 09/09/24 05:07
APTT 65.1 Sec (23.4-35.0) H 09/08/24 11:21
Sodium 140 mmol/L (135-145) 09/09/24 05:07
Potassium 3.8 mmol/L (3.5-5.1) 09/09/24 05:07
BUN 14 mg/dl (7-17) 09/09/24 05:07
Creatinine 0.7 mg/dL (0.6-1.0) 09/09/24 05:07
Glucose 111 mg/dl (70-99) H 09/09/24 05:07
Troponins
09/07/24 09/07/24 09/08/24
19:08 22:42 04:09
Troponin I 0.028 0.051 H* D 0.045 H*
09/08/24
11:21
Troponin I 0.021 D
Vital Signs and I&O:
Vital Signs
Temp Pulse Resp BP Pulse Ox
98.6 F 72 14 110/65 96
09/09/24 08:15 09/09/24 11:00 09/09/24 08:15 09/09/24 09:58 09/09/24 10:49
Vital Signs
Temp Pulse Resp BP Pulse Ox
98.6 F 72 14 110/65 96
09/09/24 08:15 09/09/24 11:00 09/09/24 08:15 09/09/24 09:58 09/09/24 10:49
Intake & Output
09/07/24 09/08/24 09/09/24 09/10/24
06:59 06:59 06:59 06:59
Intake Total 520 / 520
Balance 520 / 520
Physical Exam
Physical Exam
GEN: No distress, awake, Ox3
HEENT: supple, anicteric, mmm
LUNGS: CTA, no wheezes/rales
CV: Reg, S1/S2, 1/6 syst LSB, no murmur
ABD: soft, BS+, NT/ND
EXT: No edema, no clubbing or cyanosis
NEURO: Gross non-focal
SKIN: No rash, warm, dry, pink
[2024-09-09 11:25] VITALS: BP 99/63
--- NOTE | 2024-09-09 12:14 | W.DS.TRANS ---
DC Summary - Event Marketing Manager
-
Discharge Instructions:
Sleep Apnea Risk Low
Discharge Diagnosis/Procedures cardiac catheterization
Diet Low Cholesterol
Activity As tolerated
Driving Restrictions As prior to admission
Bathing Restrictions None
Blood Work Thyroid function tests to be ordered by
Gonzalez after 4-6 weeks.
Others Tests The cardiology office is mailing you out a 2
week quality assurance monitor chassis. Please wear this before
your follow up with Dr. Rose
[facility] to arrange
for a home sleep test.
Instructions:
Stand-Alone Forms: DC Instructions- Cath/EP Lab
Changes to Home Medications: Yes
Discharge Medications:
DC Medications w/original date entered in [employer]
ascorbic acid (vitamin C) 1,000 mg tablet (Vitamin C) 1 g PO DAILY Supplement 04/28/24
cholecalciferol (vitamin D3) 25 mcg (1,000 unit) tablet (Vitamin D3) 25 mcg PO DAILY Supplement 04/28/24
denosumab 60 mg/mL subcutaneous syringe (Prolia) 60 mg SC [id number] Anti-Inflammatory 04/28/24
magnesium 250 mg tablet 250 mg PO DAILY Supplement 04/28/24
multivitamin 1 tab PO DAILY Supplement 04/28/24
rizatriptan 10 mg disintegrating tablet 10 mg PO PRN PRN migraines 04/28/24
temazepam 15 mg capsule 15 mg PO HS PRN insomnia 04/28/24
valsartan 80 mg tablet 80 mg PO HS Blood Pressure 04/28/24
zinc 50 mg tablet 50 mg PO DAILY Supplement 04/28/24
atorvastatin 20 mg tablet 40 mg PO HS High Cholesterol 07/17/24
biotin 1 tab PO DAILY Supplement 07/17/24
coffee extract 100 mg-phosphatidyl serine 100 mg capsule (Neuriva Original) 1 cap PO DAILY Supplement 07/17/24
turmeric 1 tab PO DAILY Supplement 07/17/24
vonoprazan 20 mg tablet (Voquezna) 20 mg PO DAILY Gastrointestinal Issue 07/17/24
apixaban 5 mg tablet (Eliquis) 5 mg PO BID #60 tabs 09/09/24
levothyroxine 112 mcg tablet 112 mcg PO DAILY@0600 #30 tabs 09/09/24
metoprolol succinate 25 mg tablet,extended release 24 hr 25 mg PO DAILY #30 tabs 09/09/24
Home Medication Changes
You are newly started on Metoprolol XL 25mg daily to help control heart rates.
You are newly started on Eliquis for stroke prevention in setting of atrial fibrillation.
Your Levothyroxine dose is decreased from 125 to 112mcg daily.
Stop Aspirin (as you are now started on Eliquis).
Pending Results: No
--- NOTE | 2024-09-09 15:38 | W.DCSUMMARY ---
Discharge Summary
Discharge Data
Date of Admission: 09/07/24
Date of Discharge: 09/09/24
-
Pending Results: No
Hospital Course
Discharging Physician : Dr. Michelle Lucero
Disposition : Home
Primary care physician : Dr. Stella Oglesby
Principal Discharge diagnosis : Atrial Fibrillation
Hospital Course :
Ms. Estela Gallego is a 74 yo woman with hx hypothyroidism, migraine, GERD with on-going outpatient work-up left jaw pain (recent start Imdur and Metoprolol, plan for cardiac cath morning of 09/08) presents to the ER 09/07 with headache post Imdur
and palpitations earlier that morning. She checked her pulse at home with a [employer] monitor and this stated that she was in A-Fib with heart rate of 189.
Triage VS with T 98, P 168, RR 20, BP 131/85, SpO2 95%. Labs with stable renal function, K+ 3.9. She was started on IV Diltiazem gtt and admitted to medicine with Cardiology consulting. HR improved on Diltiazem gtt. She underwent cardiac cath
which showed non-obstructive CAD. Patient converted to sinus rhythm.
She is discharged with new scripts for Metoprolol and Eliquis, she is told to stop Aspirin. She is discharged with plans for outpatient sleep study, monitoring coordinator and close follow up.
On admission, TSH low at 0.07 and her CARE SUPPORT REPRESENTATIVE Synthroid was decreased to 112mcg daily, Dr. Gonzalez updated.
Time spent on discharge was 35 minutes.
Important imaging findings :
TTE 09/08/24
CONCLUSIONS
Normal left ventricular chamber size. Normal left ventricular systolic
function. Left ventricular ejection fraction is 60% by visual assessment.
Normal regional wall motion. Mild concentric left ventricular hypertrophy.
No significant valvular disease.
No prior study available for comparison.
Indications:
new Afib, chest pain
Procedure findings :
Cardiac Cath 09/08/24
CONCLUSIONS
1. Nonobstructive coronary disease
2. Preserved left ventricular systolic function
RECOMMENDATIONS
1. Resume IV/oral anticoagulation
2. EP will be involved to discuss antiarrhythmic therapy and possible cardioversion
Discharge Plan
-
Patient Disposition: Home (Routine Discharge)
Discharge Diagnosis/Procedures: cardiac catheterization
Diet: Low Cholesterol
Activity: As tolerated
Driving Restrictions: As prior to admission
Bathing Restrictions: None
Blood Work: Thyroid function tests to be ordered by Dr. Gonzalez after 4-6 weeks.
Others Tests: The cardiology office is mailing you out a 2 week monitoring coordinator. Please wear this before your follow up with Dr. Rose
[facility] to [facility] for a home sleep test.
Stand Alone Forms: DC Instructions- Cath/EP Lab
Referrals:
Stella Oglesby MD [Family Provider] - in less than 1 week
Nathan Rose MD [Active] - 10/17/24 2:00 pm (You have a cardiology follow-up appointment at the [place] office. Please call with questions)
Additional Discharge Medication Instructions: You are newly started on Metoprolol XL 25mg daily to help control heart rates.
You are newly started on Eliquis for stroke prevention in setting of atrial fibrillation.
Your Levothyroxine dose is decreased from 125 to 112mcg daily.
Stop Aspirin (as you are now started on Eliquis).
Prescriptions:
New
Eliquis 5 mg Tablet
5 mg PO BID Qty: 60 1RF
levothyroxine 112 mcg Tablet
112 mcg PO DAILY@0600 Qty: 30 1RF
metoprolol succinate 25 mg Tablet Extended Release 24 Hr
25 mg PO DAILY Qty: 30 1RF
Continued
multivitamin Tablet
1 tab PO DAILY
ascorbic acid (vitamin C) [Vitamin C] 1,000 mg Tablet
1 g PO DAILY
valsartan 80 mg Tablet
80 mg PO HS
temazepam 15 mg Capsule
15 mg PO HS PRN (Reason: insomnia)
rizatriptan 10 mg Tablet,Disintegrating
10 mg PO PRN PRN (Reason: migraines)
zinc 50 mg Tablet
50 mg PO DAILY
magnesium 250 mg Tablet
250 mg PO DAILY
cholecalciferol (vitamin D3) [Vitamin D3] 25 mcg (1,000 unit) Tablet
25 mcg PO DAILY
Prolia 60 mg/mL Syringe
60 mg SC [id number]
atorvastatin 20 mg Tablet
40 mg PO HS
Neuriva Original 100-100 mg Capsule
1 cap PO DAILY
Voquezna 20 mg Tablet
20 mg PO DAILY
biotin
1 tab PO DAILY
turmeric
1 tab PO DAILY
Discontinued
levothyroxine 125 mcg Tablet
125 mcg PO DAILY
aspirin 81 mg Capsule
81 mg PO DAILY
Discharge Orders:
Discharge Patient (As Directed); Ordered 09/09/24
Ordered By: Michelle Lucero
Care Plan Goals
Care Plan Goals:
Problem: Readiness for enhanced knowledge related to diagnosis and treatment plan
Goal: Understand your diagnosis and treatment plan needs, including medications if applicable.
Instructions: Know your diagnosis, underlying causes and treatment plan options, including medications if applicable. Consult with your health care team to learn about your diagnosis and treatment plan, including medications if applicable.
Discharge Date and Time
Discharge Date/Time: 09/09/24 13:12
Print Language: TURKISH
== END 2024-09-09 13:12 | disposition home or self-care (01) | DRG 287 ==
LOC: IVU 21:20
PROVIDERS: Internal Medicine Interventional Cardiology; Nurse Practitioner; Physician Assistant; ADMITTING PHYSICIAN Hospitalist; ATTENDING PHYSICIAN Student in an Organized Health Care Education/Training Program; CONSULT PHYSICIAN Internal Medicine Cardiovascular Disease; EMERGENCY PHYSICIAN Emergency Medicine; FAMILY PHYSICIAN Internal Medicine
PROC: B2151ZZ Fluoroscopy of Left Heart using Low Osmolar Contrast (ICD-10-PCS; 2024-09-08)
PROC: B2111ZZ Fluoroscopy of Multiple Coronary Arteries using Low Osmolar Contrast (ICD-10-PCS; 2024-09-08)
PROC: 4A023N7 Measurement of Cardiac Sampling and Pressure, Left Heart, Percutaneous Approach (ICD-10-PCS; 2024-09-08)
DX: I48.0 Paroxysmal atrial fibrillation (principal); I5A Non-ischemic myocardial injury (non-traumatic); E03.9 Hypothyroidism, unspecified; I25.10 Atherosclerotic heart disease of native coronary artery without angina pectoris; K21.9 Gastro-esophageal reflux disease without esophagitis; G43.909 Migraine, unspecified, not intractable, without status migrainosus
CPT/HCPCS: 80048; 80053; 80061; 83036; 83735; 84439; 84443; 84484; 85025; 85027; 85730; 86803; 93005; 93306; 93458; 96361; 96374; 96376; 99285; C1894; Q9967

== ENCOUNTER 2024-09-08 09:00 | Day surgery (SDC) | payer OTHER, SELFPAY | END 2024-09-09 13:12 | disposition home or self-care (01) | LOC: CATH 09:00 | PROVIDERS: ATTENDING PHYSICIAN Internal Medicine Interventional Cardiology | DX: I25.10 Atherosclerotic heart disease of native coronary artery without angina pectoris (principal); R07.9 Chest pain, unspecified; I10 Essential (primary) hypertension; I48.91 Unspecified atrial fibrillation; K21.9 Gastro-esophageal reflux disease without esophagitis | CPT/HCPCS: 93458; C1894; Q9967 ==

== ENCOUNTER → 2024-09-29 14:10 | Outpatient (REF) | payer OTHER, SELFPAY | LOC: DHSLP 14:10 | PROVIDERS: ATTENDING PHYSICIAN Internal Medicine Cardiovascular Disease; FAMILY PHYSICIAN Internal Medicine | DX: G47.30 Sleep apnea, unspecified (principal); R06.83 Snoring | CPT/HCPCS: 95800 ==

== ENCOUNTER → 2024-10-15 17:39 | Outpatient (REF) | payer OTHER, SELFPAY | LOC: MRI 3T 17:39 | PROVIDERS: ATTENDING PHYSICIAN Specialist; FAMILY PHYSICIAN Internal Medicine | DX: M25.512 Pain in left shoulder (principal); M25.561 Pain in right knee | CPT/HCPCS: 73221; 73721 ==

== ENCOUNTER → 2024-12-04 13:49 | Outpatient (REF) | payer OTHER, SELFPAY | LOC: HWWDC 13:49 | PROVIDERS: ATTENDING PHYSICIAN Nurse Practitioner Family; FAMILY PHYSICIAN Internal Medicine; REFERRING PHYSICIAN Obstetrics & Gynecology | DX: Z12.31 Encounter for screening mammogram for malignant neoplasm of breast (principal) | CPT/HCPCS: 77063; 77067 ==

== ENCOUNTER → 2025-02-27 11:26 | Outpatient (REF) | payer OTHER, SELFPAY | LOC: HWRAD 11:26 | PROVIDERS: ATTENDING PHYSICIAN Internal Medicine Endocrinology, Diabetes & Metabolism; FAMILY PHYSICIAN Internal Medicine | DX: M81.0 Age-related osteoporosis without current pathological fracture (principal) | CPT/HCPCS: 77080 ==

== ENCOUNTER → 2025-06-15 14:17 | Outpatient (REF) | payer OTHER, SELFPAY | LOC: HWRAD 14:17 | PROVIDERS: ATTENDING PHYSICIAN Chiropractor; FAMILY PHYSICIAN Internal Medicine | DX: M99.02 Segmental and somatic dysfunction of thoracic region (principal); M62.40 Contracture of muscle, unspecified site; M99.03 Segmental and somatic dysfunction of lumbar region; M53.2X7 Spinal instabilities, lumbosacral region; M54.9 Dorsalgia, unspecified | CPT/HCPCS: 72072; 72110 ==